=== PATIENT | female | born 1980 | race African-American/Black ===

== ENCOUNTER 2023-01-26 07:58 | Emergency (ER) | payer MEDICAID, OTHER ==
[~2023-01-26] VITALS: Ht 165.1 cm; Wt 82.0 kg
[2023-01-26 09:33] LABS: Urine Bacteria FEW /hpf (None Seen); Urine Blood Negative /uL (Negative); Urine Specific Gravity 1.041 (1.001-1.035); Urine WBC 26 /hpf (0 - 5)
[2023-01-26 09:46] VITALS: BP 138/75
[2023-01-26] MEDS ORDERED: CEPH-510 PO (11:35)
[2023-01-26] MEDS ORDERED: METR500T PO (11:35)
== END 2023-01-26 16:28 | disposition left against medical advice (07) ==
LOC: ER 07:58
DX: K52.9 Noninfective gastroenteritis and colitis, unspecified (principal); N39.0 Urinary tract infection, site not specified; E11.9 Type 2 diabetes mellitus without complications; I10 Essential (primary) hypertension; Z91.018 Allergy to other foods
CPT/HCPCS: 36415; 81001; 81025; 82962; 85025